=== PATIENT | female | born 2000 ===

== ENCOUNTER 2024-02-07 14:19 | Emergency (ER) | payer OTHER ==
[2024-02-07] MEDS: Ondansetron 4 MG/2 ML SDV IVPUSH ONE (14:39)
[2024-02-07] MEDS: Acetaminophen 500 MG Tab PO ONE (14:39)
[2024-02-07] MEDS: Sodium Chloride 0.9% 1,000 ML IV ONE (14:39)
[2024-02-07 14:42] LABS: BASOPHILS ABSOLUTE AUTO 0.04 K/uL (0.00-0.20); BASOPHILS PERCENT AUTO 0.4 % (0.0-1.0); EOSINOPHILS ABSOLUTE AUTO 0.13 K/uL (0.00-0.45); EOSINOPHILS PERCENT AUTO 1.1 % (0.0-6.0); HEMOGLOBIN 13.5 g/dL (12.0-16.0); IMMATURE GRAN ABSOLUTE AUTO 0.03 K/uL (0.00-0.05); IMMATURE GRAN PERCENT AUTO 0.3 % (0.0-0.4); LYMPHOCYTES ABSOLUTE AUTO 1.88 K/uL (1.00-4.80); LYMPHOCYTES PERCENT AUTO 16.5 % (24.0-44.0); MEAN CORPUSCULAR HGB CONC 33.8 g/dL (32.0-36.0); MEAN CORPUSCULAR VOLUME 85.8 fL (83.0-99.0); MEAN PLATELET VOLUME 13.1 fL (9.4-12.3); MONOCYTES ABSOLUTE AUTO 0.68 K/uL (0.00-0.80); NEUTROPHILS ABSOLUTE AUTO 8.62 K/uL (1.80-7.70); NEUTROPHILS PERCENT AUTO 75.7 % (41.0-71.0); PLATELET COUNT,PLT 240 K/uL (150-400); RED BLOOD CELL COUNT 4.66 M/uL (4.10-5.30); WHITE BLOOD CELL COUNT,WBC 11.38 K/uL (3.9-11.3)
[2024-02-07 15:21] LABS: A/G RATIO 0.7 (0.9-1.6); ALANINE AMINOTRANSFERASE,ALT 33 IU/L (14-63); ALBUMIN 3.1 g/dL (3.4-5.0); ALKALINE PHOSPHATASE 65 U/L (46-116); ASPARTATE AMNIOTRANSFERASE,AST 16 IU/L (15-37); BILIRUBIN TOTAL 0.5 mg/dL (0.2-1.0); BLOOD UREA NITROGEN,BUN 7 mg/dL (7.0-18.0); CALCIUM 9.4 mg/dL (8.5-10.1); CARBON DIOXIDE,CO2 25.9 mmol/L (21.0-32.0); CHLORIDE,CL 104 mmol/L (98-107); CREATININE 0.7 mg/dL (0.6-1.0); EST CRCL DRUG DOSING (CG) 88.25 mL/min; GLUCOSE RANDOM 109 mg/dL (74-106); POTASSIUM,K 3.8 mmol/L (3.5-5.1); PROTEIN TOTAL,TP 7.5 g/dL (6.4-8.2); SODIUM,NA 140 mmol/L (136-145)
[2024-02-07 15:30] LABS: ESTIMATED GFR 123 mL/min (>60)
[2024-02-07 15:57] LABS: APPEARANCE,URINE CLEAR; BILIRUBIN,URINE NEGATIVE (NEGATIVE); COLOR,URINE YELLOW; GLUCOSE,URINE NEGATIVE (NEGATIVE); KETONES,URINE NEGATIVE (NEGATIVE); LEUKOCYTE ESTERASE,URINE NEGATIVE (NEGATIVE); NITRITE,URINE NEGATIVE (NEGATIVE); OCCULT BLOOD,URINE NEGATIVE (NEGATIVE); PH,URINE 7.5 (5.0-8.0); PROTEIN,URINE NEGATIVE (NEGATIVE); UROBILINOGEN,URINE 0.2 EU/dL (<2.0)
[2024-02-07 16:26] LABS: CORONAVIRUS COVID-19 NAA NEGATIVE (NEGATIVE); INFLUENZA A NAA NEGATIVE (NEGATIVE); INFLUENZA B NAA NEGATIVE (NEGATIVE); RESPIRATORY SYNCYTIAL VIR NAA NEGATIVE (NEGATIVE)
== END 2024-02-07 16:45 | disposition home or self-care (01) ==
LOC: MW.ED 14:19
DX: O99.891 Other specified diseases and conditions complicating pregnancy (principal); R07.2 Precordial pain; Z3A.12 12 weeks gestation of pregnancy; Z79.899 Other long term (current) drug therapy; Z75.8 Other problems related to medical facilities and other health care
CPT/HCPCS: 0241U; 36415; 80053; 81003; 84443; 84484; 84702; 85025; 93005; 96361; 96374; 99285; A9270; J2405; J7030; 93010; 99284

== ENCOUNTER 2024-08-15 14:18 | Inpatient (IN) | payer MEDICAID ==
[2024-08-15] MEDS ORDERED: Sodium Chloride 0.9% 20 ML SDV IV PRN (14:36)
[2024-08-15] MEDS ORDERED: Lidocaine 1% 50 ML MDV INJECT PRN (14:36)
[2024-08-15] MEDS ORDERED: Water For Irrigation,Sterile 1,000 ML Container IRR PRN (14:36)
[2024-08-15] MEDS ORDERED: Methylergonovine 0.2 MG/1 ML Amp IM PRN (14:36)
[2024-08-15] MEDS ORDERED: Ondansetron 4 MG/2 ML SDV IVPUSH PRN (14:36)
[2024-08-15] MEDS ORDERED: Misoprostol 200 MCG Tab PO PRN (14:36)
[2024-08-15] MEDS ORDERED: Tranexamic Acid IN NACL,ISO-OS 1,000 MG in Premix Bag 1 BAG IV PRN (14:36)
[2024-08-15] MEDS ORDERED: Sodium Chloride 0.9% 2.5 ML Syringe FLUSH PRN (14:36)
[2024-08-15] MEDS ORDERED: Butorphanol 2 MG/ML SDV IVPUSH PRN (14:36)
[2024-08-15] MEDS ORDERED: Sodium Chloride 0.9% 10 ML Syringe FLUSH PRN (14:36)
[2024-08-15] MEDS ORDERED: Carboprost Tromethamine 250 MCG/1 mL Vial IM PRN (14:36)
[2024-08-15] MEDS ORDERED: Terbutaline 1 MG/ML SDV SUBCUT PRN (14:36)
[2024-08-15] MEDS ORDERED: Oxytocin/0.9 % Sodium Chloride 30 UNIT/500 ML BAG IV SCH (14:45)
[2024-08-15] MEDS: Lactated Ringers 1,000 ML IV SCH (15:15)
[2024-08-15 15:40] LABS: HEMATOCRIT 35.9 % (37.0-47.0); HEMOGLOBIN 12.1 g/dL (12.0-16.0); MEAN CORPUSCULAR HEMOGLOBIN 28.6 pg (28.0-32.0); MEAN CORPUSCULAR HGB CONC 33.7 g/dL (32.0-36.0); MEAN CORPUSCULAR VOLUME 84.9 fL (83.0-99.0); PLATELET COUNT,PLT 181 K/uL (150-400); RED BLOOD CELL COUNT 4.23 M/uL (4.10-5.30); WHITE BLOOD CELL COUNT,WBC 10.36 K/uL (3.9-11.3)
[2024-08-15] MEDS ORDERED: Phenylephrine HCl In 0.9% NaCl 1 MG/10 ML Syringe IVPUSH PRN (16:03)
[2024-08-15] MEDS ORDERED: ePHEDrine 50 MG/ML SDV IVPUSH PRN (16:03)
[2024-08-15] MEDS ORDERED: Ropivacaine HCl/PF 400 MG in Premix Bag 1 BAG EPIDUR SCH (16:15)
[2024-08-15] MEDS ORDERED: dexmedeTOMIDine HCl 200 MCG/2 ML SDV EPIDUR SCH (16:15)
[2024-08-15] MEDS: Misoprostol 25 MCG (1/4 of 100 MCG) Tab PO PRN (20:50)
[2024-08-15] MEDS: Misoprostol 25 MCG (1/4 of 100 MCG) Tab VAG PRN (20:51)
[2024-08-16] MEDS ORDERED: Bupivacaine 0.5% 10 ML SDV ONE (00:43)
[2024-08-16] MEDS ORDERED: Phenylephrine HCl In 0.9% NaCl 1 MG/10 ML Syringe ONE (00:43)
[2024-08-16] MEDS ORDERED: Ropivacaine HCl/PF 200 ML ONE (00:43)
[2024-08-16] MEDS ORDERED: Bupivacaine 0.5% 10 ML SDV INJECT ONE (01:09)
[2024-08-16] MEDS ORDERED: ePHEDrine 50 MG/ML SDV IM PRN (01:09)
[2024-08-16] MEDS ORDERED: ePHEDrine 50 MG/ML SDV IVPUSH PRN (01:09)
[2024-08-16] MEDS ORDERED: Phenylephrine HCl In 0.9% NaCl 1 MG/10 ML Syringe IVPUSH PRN (01:09)
[2024-08-16] MEDS ORDERED: dexmedeTOMIDine HCl 200 MCG/2 ML SDV EPIDUR SCH (01:15)
[2024-08-16] MEDS: Ropivacaine HCl/PF 400 MG in Premix Bag 1 BAG EPIDUR SCH (01:24)
[2024-08-16] MEDS: Oxytocin/0.9 % Sodium Chloride 30 UNIT/500 ML BAG IV SCH (03:55)
[2024-08-16 07:49] LABS: PH,UMBILICAL ARTERIAL 7.228 (7.18-7.38)
[2024-08-16 07:50] LABS: PH,UMBILICAL VENOUS 7.325 (7.25-7.45)
[2024-08-16] MEDS ORDERED: Benzocaine/Menthol 20%-0.5% Spray 78 GM Cannister TOP PRN (09:49)
[2024-08-16] MEDS ORDERED: Witch Hazel Medicated Pads 40/Jar TOP PRN (09:49)
[2024-08-16] MEDS ORDERED: oxyCODONE 5 MG Tab PO PRN (09:49)
[2024-08-16] MEDS: Ibuprofen 800 MG Tab PO PRN (10:20)
[2024-08-16] MEDS: Acetaminophen 500 MG Tab PO PRN (11:37)
[2024-08-17] MEDS: Ondansetron 4 MG Tab.DIS PO PRN (06:38)
[2024-08-17 06:56] LABS: BASOPHILS ABSOLUTE AUTO 0.03 K/uL (0.00-0.20); BASOPHILS PERCENT AUTO 0.3 % (0.0-1.0); EOSINOPHILS ABSOLUTE AUTO 0.08 K/uL (0.00-0.45); EOSINOPHILS PERCENT AUTO 0.8 % (0.0-6.0); HEMATOCRIT 34.5 % (37.0-47.0); HEMOGLOBIN 11.2 g/dL (12.0-16.0); IMMATURE GRAN ABSOLUTE AUTO 0.09 K/uL (0.00-0.05); IMMATURE GRAN PERCENT AUTO 0.9 % (0.0-0.4); LYMPHOCYTES ABSOLUTE AUTO 1.11 K/uL (1.00-4.80); LYMPHOCYTES PERCENT AUTO 11.2 % (24.0-44.0); MEAN CORPUSCULAR HEMOGLOBIN 28.1 pg (28.0-32.0); MEAN CORPUSCULAR HGB CONC 32.5 g/dL (32.0-36.0); MEAN CORPUSCULAR VOLUME 86.5 fL (83.0-99.0); MEAN PLATELET VOLUME 13.9 fL (9.4-12.3); MONOCYTES ABSOLUTE AUTO 0.98 K/uL (0.00-0.80); MONOCYTES PERCENT AUTO 9.9 % (0.0-8.0); NEUTROPHILS ABSOLUTE AUTO 7.65 K/uL (1.80-7.70); NEUTROPHILS PERCENT AUTO 76.9 % (41.0-71.0); PLATELET COUNT,PLT 163 K/uL (150-400); RED BLOOD CELL COUNT 3.99 M/uL (4.10-5.30); WHITE BLOOD CELL COUNT,WBC 9.94 K/uL (3.9-11.3)
[2024-08-17 07:01] LABS: APPEARANCE,URINE SLT CLOUDY; BILIRUBIN,URINE NEGATIVE (NEGATIVE); COLOR,URINE YELLOW; GLUCOSE,URINE NEGATIVE (NEGATIVE); KETONES,URINE NEGATIVE (NEGATIVE); LEUKOCYTE ESTERASE,URINE SMALL (NEGATIVE); NITRITE,URINE NEGATIVE (NEGATIVE); OCCULT BLOOD,URINE LARGE (NEGATIVE); PH,URINE 6.5 (5.0-8.0); PROTEIN,URINE NEGATIVE (NEGATIVE); UROBILINOGEN,URINE 0.2 EU/dL (<2.0)
[2024-08-17 07:08] LABS: BACTERIA,URINE FEW (NEGATIVE); EPITHELIAL CELLS,URINE FEW (NONE-FEW)
[2024-08-17 07:38] LABS: CORONAVIRUS COVID-19 NAA POSITIVE (NEGATIVE); INFLUENZA A NAA NEGATIVE (NEGATIVE); INFLUENZA B NAA NEGATIVE (NEGATIVE)
[2024-08-17] MEDS: Lanolin 100% Cream 7 GM Tube TOP PRN (08:19)
[2024-08-17] MEDS: Docusate Sodium 100 MG Cap PO PRN (09:49)
== END 2024-08-17 16:40 | disposition home or self-care (01) | DRG 807 ==
LOC: MW.OBCHECK 14:18 → MW.OB 15:05 → MW.OBCHECK 15:06 → MW.OB 15:06 → OBSVTOIN 08-16 03:06 → MW.OB 08-16 07:37
PROVIDERS: ADMIT Obstetrics & Gynecology Obstetrics; ATTEND Obstetrics & Gynecology Obstetrics
PROC: 10E0XZZ Delivery of Products of Conception, External Approach (ICD-10-PCS; principal; 2024-08-16)
PROC: 3E0P7VZ Introduction of Hormone into Female Reproductive, Via Natural or Artificial Opening (ICD-10-PCS; 2024-08-16)
DX: O77.0 Labor and delivery complicated by meconium in amniotic fluid (principal); Z37.0 Single live birth; Z3A.39 39 weeks gestation of pregnancy
CPT/HCPCS: 0240U; 36415; 51702; 59025; 59409; 81001; 82803; 85025; 85027; 86592; 86850; 86900; 86901; A9270-GY; J0665; J2371; J2590; J2795; J7120